=== PATIENT | female | born 1985 | race Caucasian/White ===

== ENCOUNTER 2019-05-13 02:49 | Emergency (ER) | payer OTHER ==
[2019-05-13] MEDS ORDERED: Sodium Chloride 0.9% 1,000 ML IV ONE (03:10)
[2019-05-13] MEDS ORDERED: Potassium Chloride 20 MEQ Tab.ER PO ONE (04:46)
--- NOTE | 2019-05-13 04:49 | EDM.PDOCBH ---
ED HPI GENERAL MEDICAL PROBLEM - General Chief Complaint: Drug or Alcohol Abuse Stated Complaint: ETOH Time Seen by Provider: 05/13/19 04:46 Source of Information: Reports: Patient, EMS History Limitations: Reports: Intoxication - History of Present Illness INITIAL COMMENTS - FREE TEXT/NARRATIVE: 33 y.o.w.f came to the ED by EMS because of intoxication, Pt drinks 2 times a year, pt was nauseated, but was improving on arrival and was able to drink water. No N/V on arrival, pt was a poor historian due to ETOH abuse. No other acute med issues. BP 95/48 RR 22 Pulse ox 96 Pulse 76 Temp 36.7 Onset Date: 05/12/19 Onset Time: 22:00 Duration: Hour(s): Location: Reports: Generalized Quality: Reports: Dull Severity: Moderate Improves with: Reports: Rest Worsens with: Reports: Movement Context: Reports: Other (ETOH abuse) Associated Symptoms: Reports: Nausea/Vomiting (improved [employer]) - Related Data Allergies Allergy/AdvReac Type Severity Reaction Status Date / Time ibuprofen Allergy Itching Verified 05/13/19 04:06 Home Meds: Home Meds NK [No Known Home Meds] 05/13/19 [History] Social & Family History - Tobacco Use Smoking Status *Q: Current Every Day Smoker Years of Tobacco use: 14 Packs/Tins Daily: 2 - Caffeine Use Caffeine Use: Reports: Energy Drinks - Recreational Drug Use Recreational Drug Use: No ED ROS GENERAL - Review of Systems Review Of Systems: Unable To Obtain (intoxicated) ED EXAM, BEHAVIORAL HEALTH - Physical Exam Exam: See Below Exam Limited By: Intoxication General Appearance: Alert, WD/WN, Mild Distress Eye Exam: Bilateral Eye: Normal Inspection Ears: Normal External Exam Nose: Normal Inspection, Normal Mucosa Throat/Mouth: Normal Inspection, Normal Lips, Normal Voice, No Airway Compromise Head: Atraumatic, Normocephalic Neck: Normal Inspection, Supple, Non-Tender Respiratory/Chest: No Respiratory Distress, Lungs Clear, Normal Breath Sounds, Chest Non-Tender Cardiovascular: Normal Peripheral Pulses, Regular Rate, Rhythm, No Edema GI/Abdominal: Normal Bowel Sounds, Soft, Non-Tender, No Organomegaly, No Abnormal Bruit, No Mass, Pelvis Stable (Female) Exam: Deferred Rectal (Female) Exam: Deferred Back Exam: Normal Inspection, Full Range of Motion Extremities: Normal Inspection, Normal Range of Motion, Non-Tender, Normal Capillary Refill Neurological: CN II-XII Intact, Normal Cognition, No Motor/Sensory Deficits Psychiatric: Other (tired, ) Skin Exam: Warm, Dry, Intact, Normal color, No rash COURSE, BEHAVIORAL HEALTH COMP - Course Vital Signs: Last Vital Signs Temp 36.3 C 05/13/19 05:00 Pulse 72 05/13/19 05:00 Resp 16 05/13/19 05:00 BP 100/50 L 05/13/19 05:00 Pulse Ox 95 05/13/19 05:00 33 y.o.w.f came to the ED by EMS because of intoxication, Pt drinks 2 times a year, pt was nauseated, but was improving on arrival and was able to drink water. No N/V on arrival, pt was a poor historian due to ETOH abuse. No other acute med issues. BP 95/48 RR 22 Pulse ox 96 Pulse 76 Temp 36.7 PE: WNWD W F intoxicated Labs: K was 3.2 Imaging: Not indicated Impression:ETOH intoxication, Dehydration Tx: potassium, NS Reexam: Pt improved, was able to ambulate Plan: D/C with instructions Orders, Labs, Meds: Laboratory Tests 05/13/19 05/13/19 05/13/19 Range/Units 03:25 03:25 03:25 WBC 13.4 H (4.5-12.0) X10-3/uL RBC 4.03 (3.23-5.20) x10(6)uL Hgb 13.5 (11.5-15.5) g/dL Hct 39.2 (30.0-51.3) % MCV 97.2 H (80-96) fL MCH 33.6 (27.7-33.6) pg MCHC 34.6 (32.2-35.4) g/dL RDW 12.8 (11.5-15.5) % Plt Count 249 (125-369) X10(3)uL MPV 9.4 (7.4-10.4) fL Add Manual Diff Yes Neutrophils % (Manual) 78 (46-82) % Band Neutrophils % 5 (0-6) % Lymphocytes % (Manual) 11 L (13-37) % Monocytes % (Manual) 5 (4-12) % Eosinophils % (Manual) 1 (0-5) % Sodium 145 (135-145) mmol/L Potassium 3.2 L (3.5-5.3) mmol/L Chloride 106 (100-110) mmol/L Carbon Dioxide 26 (21-32) mmol/L BUN 11 (7-18) mg/dL Creatinine 0.8 (0.55-1.02) mg/dL Est Cr Clr Drug Dosing TNP Estimated GFR (MDRD) > 60 (>60) BUN/Creatinine Ratio 13.8 (9-20) Glucose 91 (80-116) mg/dL Calcium 8.9 (8.6-10.2) mg/dL Magnesium 2.0 (1.8-2.5) mg/dL Ethyl Alcohol 0.12 H (<0.03) % Medications Discontinued Medications Generic Name Dose Route Start Last Admin Trade Name Freq PRN Reason Stop Dose Admin Sodium Chloride 1,000 mls @ 999 mls/hr 05/13/19 03:10 05/13/19 03:30 Normal Saline IV 05/13/19 04:10 999 mls/hr .BOLUS ONE Administration Potassium Chloride 40 meq 05/13/19 04:46 05/13/19 04:49 Klor-Con M20 PO 05/13/19 04:47 40 meq ONETIME ONE Administration Departure - Departure Time of Disposition: 04:47 Disposition: Home, Self-Care 01 Condition: Good Clinical Impression: ETOH abuse - Discharge Information Instructions: Alcohol Intoxication, [id number] Referrals: PCP,None [Primary Care Provider] - Forms: ED Department Discharge Additional Instructions: Please avoid alcohol use, increase water intake,please f/u, come back if your symptoms get worse acutely
== END 2019-05-13 05:00 | disposition home or self-care (01) ==
LOC: FB.ED 02:49
DX: F10.129 Alcohol abuse with intoxication, unspecified (principal); F17.210 Nicotine dependence, cigarettes, uncomplicated; Z88.6 Allergy status to analgesic agent; Y90.6 Blood alcohol level of 120-199 mg/100 ml
CPT/HCPCS: 36415; 80048; 83735; 85025; 96360; 99284; A9270; G0480; J7030; 99283